=== PATIENT | female | born 1990 | race Caucasian/White ===

== ENCOUNTER 2016-11-19 12:04 | Outpatient (CLI) ==
--- NOTE | 2016-11-19 12:45 | DI ---
EXAM: Three views of the lumbar spine HISTORY: Back pain going down left side. TECHNIQUE: AP lateral, coned-down lateral views of the lumbar spine were obtained. FINDINGS: The alignment of the lumbar spine is normal. There is no evidence of compression fracture . The intervertebral discs demonstrate normal height. There is no pars defect. IMPRESSION: No acute abnormalities are seen within the lumbar spine.
== END 2016-11-19 12:05 | disposition home or self-care (01) ==
LOC: RAD 12:04
PROVIDERS: ATTEND Physician Assistant
DX: M54.42 Lumbago with sciatica, left side (principal)

== ENCOUNTER 2016-11-24 16:19 | Emergency (ER) ==
[2016-11-24 16:26] VITALS: BP 153/86; TEMP 97.5; BMI 43.2
[2016-11-24] MEDS ORDERED: DILAUDID 1 MG/ML SYRINGE IM STA (17:00)
[2016-11-24] MEDS ORDERED: ZOFRAN ODT PO STA (17:00)
--- NOTE | 2016-11-24 17:29 | ED.PDOC ---
General ED Provider: Dr. SELAM MEJIAS Chief Complaint: Back Pain Stated Complaint: Patient complains of severe back pain that started this past week was given steroids and muscle relaxers which improved the pain but today when she went to get up she heard a pop and started having severe pain. Pain radiated to the left thigh with nubness Time Seen by Physician: 16:20 Mode of Arrival: Walk-In Information Source: Patient Exam Limitations: No limitations Primary Care Provider: IRA ROSENBAUM Nursing and Triage Documentation Reviewed and Agree: Yes Musculoskeletal Complaint Exam - Back Pain Complaint/Exam Mechanism of Injury: Reports: No known trauma Onset/Duration: 5 days Symptoms Are: Still present Timing: Constant Initial Severity: Moderate Current Severity: Severe Location: Reports: Discrete Character: Reports: Dull, Aching, Throbbing Aggravating: Reports: Movements, Bending, Walking Alleviating: Reports: Position (extending left leg ) Associated Signs and Symptoms: Reports: Numbness Related History: Reports: Similar episode TAD Risk Factors: Reports: None AAA Risk Factors: Reports: None Paraspinal Muscle Spasm: Yes Scoliosis: No Lordosis: No Kyphosis: No SLR Test: Right Negative, Left Positive Hip Motion Testing Pain: Right Positive, Left Positive Focal Weakness: Present: None Focal Sensory Loss: Present: None Gait: Present: Abnormal Back Picture: 1 - pain 2 - radiation Differential Diagnoses: Herniated Disk, Strain, Sprain Review of Systems - Review Of Systems Constitutional: Reports: No symptoms Musculoskeletal: Reports: Back pain, Muscle pain All Other Systems: Reviewed and Negative Past Medical History - Past Medical History Previously Healthy: Yes Endocrine: Reports: None Cardiovascular: Reports: None Respiratory: Reports: None Hematological: Reports: None Gastrointestinal: Reports: None Genitourinary: Reports: None Neuro/Psych: Reports: None Musculoskeletal: Reports: Back Pain Cancer: Reports: Skin Last Menstrual Period: june 2016 - Surgical History General Surgical History: Reports: None - Family History Family History: Reports: None - Social History Smoking Status: Current every day smoker, Heavy tobacco smoker Hx Substance Use: No Alcohol Screening: None Physical Exam - Physical Exam Appearance: Obese Ill-appearing: Moderate Pain Distress: Severe Respiratory: Airway patent, Breath sounds clear, Breath sounds equal, Respirations nonlabored Cardiovascular: RRR, Pulses normal, No rub, No murmur GI/: Soft, Nontender, No masses, Bowel sounds normal, No Organomegaly Musculoskeletal: Normal strength, No edema, No calf tenderness, Limited ROM ( left leg ) Neurological: Alert, Oriented Psychiatric: Anxious Critical Care Note - Critical Care Note Total Time (mins): 0 Course - Course Orders, Labs, Meds: Lab Review 11/24/16 17:30 Serum , Qual Negative Orders Category Date Time Status HCG QUALITATIVE [SERUM ] Stat LAB 11/24/16 17:30 Completed Hydromorphone HCl [Dilaudid 1 mg/ml Syringe] MEDS 11/24/16 17:00 Discontinued 1 mg IM ONCE STA Ketorolac Tromethamine [Toradol] MEDS 11/24/16 18:34 Discontinued 60 mg IM ONCE STA Ondansetron [Zofran Odt] MEDS 11/24/16 17:00 Discontinued 4 mg PO ONCE STA CT LUMBAR SPINE W/O CONTRAST Stat RADS 11/24/16 17:25 Completed Medications Discontinued Medications Generic Name Dose Route Start Last Admin Trade Name Freq PRN Reason Stop Dose Admin Hydromorphone HCl 1 mg 11/24/16 17:00 11/24/16 17:13 Dilaudid 1 Mg/Ml Syringe IM 11/24/16 17:01 1 mg ONCE STA Administration Ketorolac Tromethamine 60 mg 11/24/16 18:34 11/24/16 18:43 Toradol IM 11/24/16 18:35 60 mg ONCE STA Administration Ondansetron HCl 4 mg 11/24/16 17:00 11/24/16 17:13 Zofran Odt PO 11/24/16 17:01 4 mg ONCE STA Administration Vital Signs: Temp Pulse Resp BP Pulse Ox 11/24/16 16:19 97.5 F L 86 20 153/86 H 96 Departure - Departure Time of Disposition: 19:30 Disposition: HOME SELF-CARE Discharge Problem: Sciatica of left side, Backache Instructions: Lumbar Radiculopathy (ED) Condition: Fair Pt referred to PMD for follow-up: Yes Additional Instructions: Take Medications as prescribed Follow up with PCP for orthopedic referral. Prescriptions: Hydrocodone/Acetaminophen [Quitman 5-325 Tablet] 1 tab PO Q6HR PRN #20 tablet PRN Reason: PAIN Allergies/Adverse Reactions: Allergies No Known Allergies Allergy (Unverified 11/24/16 16:27) Home Medications: Ambulatory Orders Citalopram Hydrobromide [Celexa] 20 mg PO DAILY 11/24/16 Cyclobenzaprine HCl [Flexeril] 5 mg PO TID 11/24/16 Hydrocodone/Acetaminophen [Quitman 5-325 Tablet] 1 tab PO Q6HR PRN #20 tablet 09/03 Ibuprofen 600 mg PO QID 11/24/16 Methylprednisolone [Medrol Dosepak] 4 mg PO DIRECTED 11/24/16 Norethindrone [Jolivette] 0.35 mg PO DAILY 11/24/16 Disposition Discussed With: Patient, Family
[2016-11-24 18:01] LABS: SERUM PREGNANCY INTERNAL QC INTERNAL QC VALID
[2016-11-24] MEDS ORDERED: TORADOL IM STA (18:34)
--- NOTE | 2016-11-24 18:35 | CT ---
EXAM: CT lumbar spine without intravenous contrast 11/24/2016. Sagittal and coronal reformatted abby ges obtained HISTORY: Back pain COMPARISON: None. FINDINGS: Normal anatomic alignment is maintained. The vertebral bodies appear intact. The facet j oints align normally. Chronic degenerative disc disease. Posterior disc bulge/osteophyte complex most severe at L3-L4. There is no fracture or subluxation at any level. IMPRESSION: No acute osseous abnormality of the lumbar spine.
[2016-11-24] MEDS ORDERED: NORCO 7.5-325 PO STA (19:29)
== END 2016-11-24 19:43 | disposition home or self-care (01) ==
LOC: ED 16:19
DX: M54.42 Lumbago with sciatica, left side (principal); F17.210 Nicotine dependence, cigarettes, uncomplicated
CPT/HCPCS: 36415; 84703; 96372; 99283

== ENCOUNTER 2017-04-09 11:19 | Emergency (ER) ==
[2017-04-09 11:25] VITALS: TEMP 98.2; BMI 45.0
[2017-04-09 11:39] VITALS: BP 130/66
[2017-04-09] MEDS ORDERED: ASPIRIN CHEWABLE PO STA (12:10)
--- NOTE | 2017-04-09 12:10 | ED.PDOC ---
General ED Provider: Dr. 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 Had to lift a client on Saturday which she believed resulted in straining her chest and upper back. Described as sharp, stabbing in Lt Chest Wall with mild sob.Feels diaphoretic at times. Does not use [facility] Mode of Arrival: Walk-In Information Source: Patient Primary Care Provider: IRA ROSENBAUM Sepsis Protocol: For patient's 13 years and over: Temp is 96.8 and below OR 101 and greater Pulse >90 BPM Resp >20/minute Acutely Altered Mental Status Are patient's symptoms suggestive of a new infection, such as: -Pneumonia -Skin, Soft Tissue -Endocarditis -UTI -Bone, Joint Infection -Implantable Device -Acute Abdominal Infection -Wound Infection -Meningitis -Blood Stream Catheter Infection -Unknown Past Medical History - Past Medical History Previously Healthy: Yes Endocrine: Reports: None Cardiovascular: Reports: None Respiratory: Reports: None Hematological: Reports: None Gastrointestinal: Reports: None Genitourinary: Reports: None Neuro/Psych: Reports: None Musculoskeletal: Reports: Back Pain Cancer: Reports: Skin Last Menstrual Period: June of last year - Surgical History General Surgical History: Reports: None - Family History Family History: Reports: None - Social History Smoking Status: Current every day smoker, Heavy tobacco smoker Hx Substance Use: No Alcohol Screening: None Course - Course Hematology/Chemistry: 04/09/17 12:25 04/09/17 12:25 Orders, Labs, Meds: Lab Review 04/09/17 04/09/17 04/09/17 12:25 12:25 12:25 WBC 8.31 RBC 4.22 Hgb 12.5 Hct 37.9 MCV 89.8 MCH 29.6 MCHC 33.0 RDW Coeff of Shannan 13.1 Plt Count 275 Immature Gran % (Auto) 0.2 Neut % (Auto) 61.6 Lymph % (Auto) 29.4 Sevier % (Auto) 6.5 Eos % (Auto) 1.9 Baso % (Auto) 0.4 Immature Gran # (Auto) 0.0 Neut # 5.1 Lymph # 2.4 Sevier # 0.5 Eos # 0.2 Baso # 0.0 D-Dimer (Manual) Sodium 140 Potassium 3.9 Chloride 107 Carbon Dioxide 26 Anion Gap 10.9 BUN 15 Creatinine 0.62 Estimated GFR (MDRD) 115.00 BUN/Creatinine Ratio 24.19 Glucose 133 H Calcium 9.0 Total Bilirubin 0.4 AST 26 ALT 22 Alkaline Phosphatase 72 Troponin I < 0.0100 Total Protein 6.6 Albumin 3.2 L Globulin 3.4 Albumin/Globulin Ratio 0.94 Serum , Qual Negative 04/09/17 12:25 WBC RBC Hgb Hct MCV MCH MCHC RDW Coeff of Shannan Plt Count Immature Gran % (Auto) Neut % (Auto) Lymph % (Auto) Sevier % (Auto) Eos % (Auto) Baso % (Auto) Immature Gran # (Auto) Neut # Lymph # Sevier # Eos # Baso # D-Dimer (Manual) 159.70 Sodium Potassium Chloride Carbon Dioxide Anion Gap BUN Creatinine Estimated GFR (MDRD) BUN/Creatinine Ratio Glucose Calcium Total Bilirubin AST ALT Alkaline Phosphatase Troponin I Total Protein Albumin Globulin Albumin/Globulin Ratio Serum , Qual Orders Category Date Time Status EKG-(ED ONLY) Stat CARDIO 04/09/17 12:11 Completed CBC W/ AUTO DIFF Stat LAB 04/09/17 12:25 Completed CMP [COMPREHENSIVE METABOLIC PANEL] Stat LAB 04/09/17 12:25 Completed D-DIMER Stat LAB 04/09/17 12:25 Completed HCG QUALITATIVE [SERUM ] Stat LAB 04/09/17 12:25 Completed TROPONIN I Stat LAB 04/09/17 12:25 Completed Aspirin [Aspirin Chewable] MEDS 04/09/17 12:10 Discontinued 324 mg PO ONCE STA CHEST, 2 VIEWS PA & LAT Stat RADS 04/09/17 12:11 Completed Medications Discontinued Medications Generic Name Dose Route Start Last Admin Trade Name Jesseeq PRN Reason Stop Dose Admin Aspirin 324 mg 04/09/17 12:10 04/09/17 12:33 Aspirin Chewable PO 04/09/17 12:11 324 mg ONCE STA Administration Vital Signs: Temp Pulse Resp BP Pulse Ox 04/09/17 11:39 130/66 04/09/17 11:21 98.2 F 88 16 155/93 H 97 Departure - Departure Time of Disposition: 16:15 Disposition: HOME SELF-CARE Discharge Problem: Acute chest wall pain Instructions: Chest Wall Pain (ED) Condition: Good Pt referred to PMD for follow-up: Yes IPMP verified?: No Allergies/Adverse Reactions: Allergies nicotine Adverse Reaction (Verified 04/09/17 11:25) Home Medications: Ambulatory Orders Aripiprazole [Abilify] 2 mg PO DAILY 04/09/17 Cholecalciferol (Vitamin D3) [Vitamin D3] 1,000 unit PO DAILY 04/09/17 Escitalopram Oxalate [Lexapro] 5 mg PO DAILY 04/09/17 Ibuprofen 600 mg PO Q6HR PRN #30 tablet 04/09/17 Disposition Discussed With: Patient
--- NOTE | 2017-04-09 13:16 | DI ---
EXAM: CHEST FRONTAL AND LATERAL VIEWS HISTORY: Chest pain. COMPARISON: 10/14/2014 FINDINGS: Heart size and mediastinal contour remain within normal limits. No acute infiltrates. Normal vascularity with no pleural fluid or pneumothorax. The bony thorax has no acute finding. IMPRESSION: No acute process.
== END 2017-04-09 17:03 | disposition home or self-care (01) ==
LOC: ED 11:19
DX: R07.89 Other chest pain (principal); R06.02 Shortness of breath; F17.210 Nicotine dependence, cigarettes, uncomplicated; M54.9 Dorsalgia, unspecified; Z79.899 Other long term (current) drug therapy
CPT/HCPCS: 36415; 80053; 84484; 84703; 85025; 85379; 93005; 93010; 99283